=== PATIENT | female | born 1950 | race Caucasian/White ===

== ENCOUNTER → 2017-12-27 | Outpatient (CLI) | payer MEDICARE, BC | END | disposition home or self-care (01) | LOC: LABMAIN 17:53 | PROVIDERS: ATTEND Family Medicine | DX: R42 Dizziness and giddiness (principal) | CPT/HCPCS: 36415; 82565 ==

== ENCOUNTER → 2017-12-31 | Outpatient (CLI) | payer MEDICARE, BC ==
--- NOTE | 2017-12-31 08:36 | MR ---
EXAMINATION TYPE: MR brain wo/w con DATE OF EXAM: 12/31/2017 COMPARISON: MRI brain and IAC January 19, 2016. HISTORY: dizziness, ataxia, and cervicalgia all per order. Additional symptoms of left-sided hearing loss per patient. TECHNIQUE: Multiplanar, multisequence images of the brain and brainstem is performed without and with IV contras t, utilizing 7.5 mL intravenous Gadavist . FINDINGS: Diffusion weighted images demonstrate no evidence of a recent infarct or other diffusion ab normality. There is no worrisome extra-axial fluid collection. The ventricular system and cisternal spaces are normal in size and appearance. The brain volume is age appropriate. There is redemonstra tion of scattered foci of T2 hyperintensity seen throughout the deep and periventricular white matter . Lesions are nonspecific in appearance and distribution but most likely on basis of product of chron ic small vessel ischemic change. Midline structures demonstrate normal morphology. The craniocervical junction appears within normal limits. Post contrast images demonstrate no abnormal enhancement. The dural venous sinuses appear pa tent. The visualized sinuses are clear and the globes are intact. IMPRESSION: Moderate nonspecific white matter changes most likely on basis of product of chronic smal l vessel ischemic change redemonstrated without significant interval change. No suspicious enhancemen t. No significant change from prior MRI.
--- NOTE | 2017-12-31 11:19 | ECHOS ---
STRESS ECHOCARDIOGRAM INDICATIONS: Dizziness. MEDICATIONS: Amlodipine, Synthroid, Wellbutrin. BASELINE HEART RATE: 71 BASELINE BLOOD PRESSURE: 152/62 MAXIMUM HEART RATE: 141 MAXIMUM BLOOD PRESSURE: 177/85 85% MPHR: 130 100% MPHR: 153 METS: 9.1 MAXIMUM STAGE REACHED: 3 TOTAL EXERCISE TIME: 7:30 CLINICAL INFORMATION: History of dizziness. Baseline heart rate 71 beats per minute. Baseline blood pressure 152/62 mmHg. Baseline 12-lead ECG shows sinus rhythm with a 0.[address] depression inferior laterally. The patient exercised on a Edgar protocol for 7 minutes 30 seconds achieving a peak heart rate of 141 beats per minute. No chest pain noted. Normal blood pressure response to exercise. There was a [address] depression at peak exercise and into recovery. Baseline 2D echo images are suboptimal and therefore Definity contrast was used to delineate the LV endocardial borders. There was excellent augmentation of overall LV contractility without developing any wall motion abnormalities. At recovery, regional global LV systolic function remained normal. IMPRESSION: 1. No ECG or echocardiographic evidence for ischemia. Average exercise capacity. 2. Normal blood pressure response to exercise. 3. No arrhythmias noted. MMODL / IJN: [id number] /
== END | disposition home or self-care (01) ==
LOC: RADMRIMAIN 07:43
PROVIDERS: ATTEND Family Medicine
DX: R42 Dizziness and giddiness (principal); Z88.0 Allergy status to penicillin
CPT/HCPCS: 93017; 70553; C8928; A9581; Q9950; 93350